=== PATIENT | female | born 1975 | race Caucasian/White ===

== ENCOUNTER 2016-09-26 07:56 | Emergency (ER) | payer OTHER ==
[~2016-09-26] VITALS: Ht 170.2 cm; Wt 59.4 kg
[2016-09-26 07:58] VITALS: BP 127/70
--- NOTE | 2016-09-26 08:06 | ED HAND/WRIST INJURY COMPLAINT ---
History of Present Illness General Chief Complaint: Hand or Wrist Injury Stated Complaint: LFT FINGER CRUSHED AT THE GYM/LAC Source: patient Exam Limitations: no limitations Vital Signs & Intake/Output Vital Signs & Intake/Output Vital Signs Date Time Temp Pulse Resp B/P Pulse O2 O2 Flow FiO2 Ox Delivery Rate 09/26 0758 98.0 98 18 127/70 98 Room Air Allergies Coded Allergies: No Known Allergies (09/26/16) Reconcile Medications Zolpidem Tartrate (Zolpidem Tartrate ER) 12.5 MG TAB.MPHASE 1 TAB PO QPM SLEEP (Reported) Triage Note: PT STATES THAT SHE WAS AT THE GYM WHEN SHE DROPPED A WEIGHT A ND HER L MIDDLE FINGER WAS PINCHED BETWEEN TO WEIGHTS. PT NOTED WITH SMALL FLAP LIKE LAC, NO BLEEDING AND COMPLAINS OF THROBBING PAIN BUT REFUSES PAIN MEDS Triage Nurses Notes Reviewed? yes : No Patient currently breastfeeds: No HPI: Patient is a 41-year-old female presents complaining of crush injury to her left middle finger. Patient was at the gym when her finger got crushed between 2 weights. Injury occurred this morning. Pain is a throbbing pain currently 6-7 out of 10, worsened with palpation. Patient is left-hand dominant. Last tetanus immunization within the past 5 years. Patient reports mild difficulty flexing her left middle finger. Denies numbness. Past History Travel History Traveled to [place] past 21 day No Medical History Any Pertinent Medical History? 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 No Review of Systems Review of Systems Constitutional: Reports: no symptoms. Cardiovascular: Denies: chest pain. GI: Denies: abdominal pain. Musculoskeletal: Reports: see HPI. Skin: Reports: see HPI. Neurological/Psychological: Denies: numbness, paresthesia. Hematologic/Endocrine: Reports: bleeding (from wound, resolved). Physical Exam Physical Exam General Appearance: well developed/nourished, alert, awake Head: atraumatic, normal appearance Eyes: Bilateral: normal appearance. Ears, Nose, Throat: hearing grossly normal Neck: normal inspection, full range of motion Cardiovascular/Respiratory: no respiratory distress Back: normal range of motion Hand Left: 2 cm superficial flap laceration to left middle finger on the volar side of the middle phalanx. Full range of motion of the middle finger. No visible or functional tendon deficit. Capillary refill and sensation grossly normal. Hand Right: normal inspection, normal range of motion Neurologic/Tendon: normal sensation, normal motor functions, normal tendon functions Skin: warm/dry Progress Differential Diagnosis: contusion, dislocation, fracture, laceration, tendon laceration Plan of Care: Orders Procedure Date/time Status XRY-FINGERS, LEFT 09/26 803 Active Laceration very superficial. Sutures deferred. Area prepped with Betadine and irrigated with 200 mL of sterile water. Steri-strips placed to the area. Finger splint placed by nurse to aid with healing. (BHAVIK MURRIETA,SHAUNNA) Diagnostic Imaging: Viewed by Me: Radiology Read. Discussed w/RAD: Radiology Read. Radiology Impression: PATIENT: PIERRE SALGADO PRESENT AGE: 41 PATIENT ACCOUNT NO: [id number] : 76 LOCATION: [facility] ORDERING PHYSICIAN: VIKKI KEYS DO SERVICE DATE: 09/26/16 EXAM TYPE: RAD - XRY-FINGERS, LEFT EXAMINATION: XR FINGER, LEFT CLINICAL INFORMATION: Left middle finger crushed with weight COMPARISON: None TECHNIQUE: Three views of the left middle finger. FINDINGS: Osseous alignment is anatomic. No acute fracture is seen. No significant focal soft tissue abnormality is identified. IMPRESSION: No acute findings. DICTATED BY: MARIANO MACDONALD MD DATE/TIME DICTATED:09/26/16828 BURLAP MAN:BOZENA DATE/TIME TRANSCRIBED:828 CONFIDENTIAL, DO NOT COPY WITHOUT APPROPRIATE AUTHORIZATION. < Electronically signed in Other Vendor System> SIGNED BY: MARIANO MACDONALD MD 09/26/16836 Departure Departure Time of Disposition: 840 Disposition: HOME OR SELF CARE Condition: Stable Clinical Impression Primary Impression: Finger laceration Qualifiers: Encounter type: initial encounter Qualified Code: S61.219A - Laceration without foreign body of unspecified finger without damage to nail, initial encounter Secondary Impressions: Crush injury to finger Qualifiers: Encounter type: initial encounter Qualified Code: S67.10XA - Crushing injury of unspecified finger(s), initial encounter Referrals: IKKO PIÑA MD (PCP/Family) Additional Instructions: Change the dressing daily. Wear finger splint to aid with healing. Steri- Strips will flake off on their own. Return to the emergency department if pus from the wound, redness spreading from the wound, fevers, increasing pain, or worsening of symptoms. Departure Forms: Customer Survey General Discharge Information
[2016-09-26] MEDS ORDERED: ZOLPIDEM TART12.5 M1 PO (08:27)
--- NOTE | 2016-09-26 08:37 | RADIOLOGY REPORT ---
EXAMINATION: XR FINGER, LEFT CLINICAL INFORMATION: Left middle finger crushed with weight COMPARISON: None TECHNIQUE: Three views of the left middle finger. FINDINGS: Osseous alignment is anatomic. No acute fracture is seen. No significant focal soft tissue abnormality is identified. IMPRESSION: No acute findings.
== END 2016-09-26 08:52 ==
LOC: ERH 07:56
DX: S61.213A Laceration without foreign body of left middle finger without damage to nail, initial encounter (principal); S67.193A Crushing injury of left middle finger, initial encounter; W23.0XXA Caught, crushed, jammed, or pinched between moving objects, initial encounter; Y93.B3 Activity, free weights
CPT/HCPCS: 73140-LT

== ENCOUNTER 2016-12-31 20:43 | Emergency (ER) | payer OTHER ==
[~2016-12-31 20:43] MED LIST: ZOLPIDEM TART12.5 M1 PO
[2016-12-31 20:52] VITALS: BP 140/74
--- NOTE | 2016-12-31 21:18 | RADIOLOGY REPORT ---
EXAMINATION: 1. LEFT ANKLE. 2. LEFT FOOT. CLINICAL INFORMATION: Pain after a fall. COMPARISON: None TECHNIQUE: 1. Left ankle. 3 views 2. Left foot. 3 views. FINDINGS: 1. Left ankle. No fracture. No dislocation. Ankle mortise is congruent. 2. Left foot. No fracture. No dislocation. Bone and joint is normal. IMPRESSION: 1. Left ankle. No acute abnormality. 2. Left foot. No acute abnormality.
--- NOTE | 2016-12-31 21:36 | ED ANKLE/FOOT INJURY COMPLAINT ---
History of Present Illness General Chief Complaint: Foot or Ankle Injury Stated Complaint: "? LT ANKLE INJURY S/P FALL -LOC" Source: patient Exam Limitations: no limitations Vital Signs & Intake/Output Vital Signs & Intake/Output Vital Signs Date Time Temp Pulse Resp B/P B/P Pulse O2 O2 Flow FiO2 Mean Ox Delivery Rate 12/31 2152 98.2 01/01 2052 98.2 78 22 140/74 97 Allergies Coded Allergies: No Known Allergies (09/26/16) Reconcile Medications Ibuprofen 800 MG TABLET 1 TAB PO TID PAIN Zolpidem Tartrate (Zolpidem Tartrate ER) 12.5 MG TAB.MPHASE 1 TAB PO QPM SLEEP (Reported) Triage Note: PER PT L ANKLE PAIN SP FALL IN PARKING LOT APPROX 1800. NO OTHER INJURIES Triage Nurses Notes Reviewed? yes Occurred: this afternoon Duration: hour(s):, constant, continues in ED, getting worse Timing: single episode today Severity: mild, moderate Severity Numbers: 6 Pain/Injury Location: Left: Ankle. Method of Injury: fall, twisted No Modifying Factors: none Associated Symptoms: swelling LMP (ages 10-50): unknown : No Patient currently breastfeeds: No HPI: 41-year-old female with no past medical history presents complaining of pain in her left foot and ankle after a fall earlier today. Patient reports she was walking when her left ankle suddenly rolled causing her to fall. Patient denies any loss of consciousness or head injury. Currently she is only reporting pain in the left foot and ankle that is worse with weightbearing and movement. No numbness or tingling. She is not taking any medication for the pain. Denies any other injuries. (NAKIA DOE) Past History Travel History Traveled to [place] past 21 day No Medical History Any Pertinent Medical History? 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 No (NAKIA DOE) Review of Systems Review of Systems Constitutional: Reports: no symptoms. EENTM: Reports: no symptoms. Respiratory: Reports: no symptoms. Cardiovascular: Reports: no symptoms. GI: Reports: no symptoms. Genitourinary: Reports: no symptoms. Musculoskeletal: Reports: see HPI, joint pain (LEFT ANKLE), joint swelling. Skin: Reports: no symptoms. Neurological/Psychological: Reports: no symptoms. Hematologic/Endocrine: Reports: no symptoms. Immunologic/Allergic: Reports: no symptoms. All Other Systems: Reviewed and Negative (NAKIA DOE) Physical Exam Physical Exam General Appearance: well developed/nourished, no apparent distress, alert, awake , mild distress Head: atraumatic, normal appearance Eyes: Bilateral: normal appearance. Ears, Nose, Throat: normal pharynx, normal ENT inspection, hearing grossly normal Neck: normal inspection, supple, full range of motion Cardiovascular/Respiratory: normal breath sounds, regular rate/rhythm, no respiratory distress Back: normal inspection, normal range of motion Leg/Knee/Thigh Left: normal range of motion, normal inspection Leg/Knee/Thigh Right: normal range of motion, normal inspection Ankle Left: evidence of injury, pain, soft tissue tenderness, swelling, tenderness, limited range of motion Ankle Right: normal inspection, normal range of motion Foot Left: evidence of injury, tenderness, limited range of motion, pain, soft tissue tenderness, swelling Foot Right: normal inspection, normal range of motion Reflexes: 2+: knee (R), knee (L). Neuro/Vascular: normal motor function, normal sensation Tendon: normal tendon function Psychiatric: awake, alert, oriented x 3 Skin: intact, normal color, warm/dry Comments: There is pain and soft tissue swelling on the lateral aspect of the left ankle near the lateral malleolus. No bruising or erythema range of motion is reduced due to pain in the left ankle. Diagram Feet Left/Right: 1) Feet Top: 1) PAIN/SWELLING (NAKIA DOE) Progress Differential Diagnosis: DVT, cellulitis, septic arthritis, fracture, dislocation , sprain, contusion Plan of Care: Orders Procedure Date/time Status Durable Medical Equipment 12/31 2144 Active X-rays of the foot and ankle were negative for fracture. Recommended rest ice elevation and compression. Patient was given crutches and an Dilip wrap was applied. iBUPROFEN for pain. Patient will follow up with her primary care doctor this week. (NAKIA DOE) Diagnostic Imaging: Viewed by Me: Radiology Read. Comments: FINDINGS: 1. Left ankle. No fracture. No dislocation. Ankle mortise is congruent. 2. Left foot. No fracture. No dislocation. Bone and joint is normal. IMPRESSION: 1. Left ankle. No acute abnormality. 2. Left foot. No acute abnormality. (NAKIA DOE) Departure Departure Disposition: HOME OR SELF CARE Condition: Stable Clinical Impression Primary Impression: Left ankle sprain Referrals: AYANA HOUSER,KIKO (PCP/Family) Additional Instructions: Rest avoid excessive physical activity and weightbearing. Elevate the foot and apply ice every few hours. Wear Dilip wrap during the day. Use ibuprofen 800 mg every 8 hours with food as needed for pain. Make a follow-up appointment with your primary care doctor this week. Use crutches for walking around. Return to emergency department with worsening pain swelling redness or any other concerns. Departure Forms: Customer Survey General Discharge Information Prescriptions: Current Visit Scripts Ibuprofen 1 TAB PO TID #30 TAB (NAKIA DOE) PA/COMMERCIAL ANALYST Co-Sign Statement Statement: ED Attending supervision documentation- [] I saw and evaluated the patient. I have also reviewed all the pertinent lab results and diagnostic results. I agree with the findings and the plan of care as documented in the PA's/COMMERCIAL ANALYST's documentation. [X] I have reviewed the ED Record and agree with the PA's/COMMERCIAL ANALYST's documentation. [] Additions or exceptions (if any) to the PAs/COMMERCIAL ANALYST's note and plan are summarized below: [] (BTETINA HOUSER,SANIYA Silva) Procedures Splinting Location: left ankle Pre-Made Type: velcro (Dilip wrap) Splint Applied By: splint applied by me Pre-Proc Neuro Vasc Exam: normal Post-Proc Neuro Vasc Exam: normal (NAKIA DOE)
[2016-12-31] MEDS ORDERED: IBUPROFEN800 M1 PO (21:48)
== END 2016-12-31 21:59 ==
LOC: ERH 20:43
DX: S93.402A Sprain of unspecified ligament of left ankle, initial encounter (principal); W19.XXXA Unspecified fall, initial encounter; Y93.01 Activity, walking, marching and hiking; Y92.9 Unspecified place or not applicable
CPT/HCPCS: 73610-LT; 73630-LT